=== PATIENT | male | born 1950 | race Caucasian/White ===

== ENCOUNTER → 2019-04-07 | Outpatient (CLI) | payer MEDICARE, BC ==
[~2019-04-07] VITALS: Ht 172.7 cm; Wt 91.0 kg
[~2019-04-07] MED LIST: ASPIRIN 32325 MG/TAB PO; BENICAR40 MG PO; LEVOXYL0.112 MG PO; LOPRESSOR 225 MG/TAB PO; ZYLOPRIM 100MG100 MG PO
[2019-04-07 14:11] VITALS: BP 183/99; PULSE 55
[2019-04-07 15:00] VITALS: BP 178/96; PULSE 57
--- NOTE | 2019-04-07 15:25 | NUR ---
pt ambulates with staff to lobby and meets up with his . as pt was standing there he states that his groin area has mild tingling. pt asked if he wanted to stay for a little longer. he refused. they leave in pov.
== END ==
LOC: COL.RAD 13:30
DX: M51.37 Other intervertebral disc degeneration, lumbosacral region (principal)
CPT/HCPCS: J3301

== ENCOUNTER → 2019-04-13 | Outpatient (CLI) | payer MEDICARE, BC | LOC: COL.RAD 12:26 | DX: M47.816 Spondylosis without myelopathy or radiculopathy, lumbar region (principal); M41.85 Other forms of scoliosis, thoracolumbar region; M47.814 Spondylosis without myelopathy or radiculopathy, thoracic region; M47.812 Spondylosis without myelopathy or radiculopathy, cervical region ==